=== PATIENT | male | born 1975 | race Caucasian/White ===

== ENCOUNTER 2021-11-09 00:04 | Inpatient (IN) | payer OTHER ==
[~2021-11-09] VITALS: Ht 165.1 cm; Wt 83.0 kg
[2021-11-09] MEDS ORDERED: IV NS 0.9% 1,000 ML BAG IV ONE ×3 (00:30→05:00)
[2021-11-09] MEDS ORDERED: ACETAMINOPHEN ES 500 MG TABLET PO ONE ×2 (00:30→11:30)
[2021-11-09] MEDS ORDERED: ACETAMINOPHEN ES 500 MG TABLET ONE ×2 (00:34→11:30)
--- NOTE | 2021-11-09 00:45 | NUR ---
IV LINE ESTABLSHED, RAC 18G. BLOOD COLLECTED AND SENT TO LAB
--- NOTE | 2021-11-09 00:52 | NUR ---
XRAY AT BEDSIDE
[2021-11-09] MEDS ORDERED: CEFTRIAXONE 1GM BAG (ER ONLY) 50 ML IV ONE ×2 (00:53→01:00)
[2021-11-09 00:54] LABS: BASOPHILS # (AUTO) 0.1 K/uL (0.0-0.2); BASOPHILS % (AUTO) 0.4 % (0.0-2.0); HEMATOCRIT 39 % (39-51); HEMOGLOBIN 13.4 g/dL (13.5-17.5); LYMPHOCYTES # (AUTO) 0.8 K/uL (0.8-4.8); LYMPHOCYTES % (AUTO) 5.2 % (20.0-44.0); MEAN CORPUSCULAR HGB CONC 34 g/dl (31.0-36.0); MEAN CORPUSCULAR VOLUME 87 fL (80-96); MONOCYTES # (AUTO) 0.7 K/uL (0.1-1.30); NEUTROPHILS % (AUTO) 89.4 % (43.0-81.0); PLATELET COUNT (AUTO) 177 K/uL (150-450); RED BLOOD CELL COUNT(AUTO) 4.55 MIL/uL (4.5-6.0); WHITE BLOOD COUNT (AUTO) 14.5 K/uL (4.3-11.0)
[2021-11-09] MEDS ORDERED: IOHEXOL-300 100 ML VIAL IV ONE (01:00)
[2021-11-09] MEDS ORDERED: CT SWABBABLE VALVE TRANS SET 1 EA INFUS.SET MC ONE (01:00)
[2021-11-09] MEDS ORDERED: METRONIDAZOLE 500MG/ NS 100ML 100 ML IV ONE ×2 (01:00→01:47)
[2021-11-09] MEDS ORDERED: IV NS 0.9% 250 ML IV ONE (01:01)
[2021-11-09 01:20] LABS: ALANINE AMINOTRANSFERASE 87 U/L (12-78); ALBUMIN 2.5 g/dL (3.4-5.0); ALKALINE PHOSPHATASE 93 U/L (46-116); ASPARTATE AMINOTRANSFERASE 53 U/L (15-37); BILIRUBIN,DIRECT 0.2 mg/dL (0.0-0.2); BILIRUBIN,TOTAL 0.6 mg/dL (0.2-1.0); CALCIUM, SERUM 7.8 mg/dL (8.5-10.1); CARBON DIOXIDE 28 mmol/L (21-32); CHLORIDE 90 mmol/L (98-107); CREATININE 1.2 mg/dL (0.6-1.3); GLUCOSE 146 mg/dL (74-106); SODIUM SERUM 126 mmol/L (136-145); TOTAL PROTEIN, SERUM 6.5 g/dL (6.4-8.2); UREA NITROGEN, BLOOD 13 mg/dL (7-18)
--- NOTE | 2021-11-09 01:21 | NUR ---
POTASSIUM 2.8, MADE MD AWARE
[2021-11-09 01:22] LABS: POTASSIUM 2.8 mmol/L (3.5-5.1)
--- NOTE | 2021-11-09 02:32 | NUR ---
Driss hooker in [facility] - 11/09/21 at 0304 by GEOVANNY ROOM [id number] GPS
[2021-11-09] MEDS ORDERED: Magnesium 1GM/D5W 100ML PREMIX 100 ML IV ONE ×2 (02:45→08:12)
[2021-11-09] MEDS ORDERED: POTASSIUM CL. PREMIX PERIPHER. 50 ML ONE ×2 (02:45→08:12)
[2021-11-09] MEDS: POTASSIUM CL. PREMIX PERIPHER. 50 ML IV SCH ×2 (02:53→08:35)
[2021-11-09 03:00] LABS: BILIRUBIN,URINE NEGATIVE (NEGATIVE); COLOR,URINE YELLOW (YELLOW); LEUKOCYTE ESTERASE ,URINE NEGATIVE (NEGATIVE); NITRITE, URINE NEGATIVE (NEGATIVE); PH,URINE 7.5 (5.0-8.0); PROTEIN,URINE TRACE mg/dl (NEGATIVE); UGLUCOSE NEGATIVE (NEGATIVE); UROBILINOGEN,URINE 0.2 EU/dL (0.2)
[2021-11-09] MEDS ORDERED: AZITHROMYCIN 500 MG in IV D5W 250 ML IV ONE (03:00)
[2021-11-09] MEDS: Magnesium 1GM/D5W 100ML PREMIX 100 ML IV SCH ×2 (04:00→08:35)
--- NOTE | 2021-11-09 04:37 | NUR ---
PT RESTING COMFORTABLY IN BED, WARM BLANKETS PROVIDED
--- NOTE | 2021-11-09 04:52 | NUR ---
PT STATES HE FEELS NAUSEA AND WARM, ELEVATED TEMP NOTED 102.6. MD MADE AWARE
[2021-11-09] MEDS ORDERED: ONDANSETRON HCL/PF 4 MG/2 ML VIAL IV ONE (05:00)
[2021-11-09] MEDS ORDERED: IBUPROFEN 400 MG TABLET PO ONE (05:00)
[2021-11-09] MEDS ORDERED: AZITHROMYCIN 500 MG VIAL ONE (05:40)
--- NOTE | 2021-11-09 06:30 | NUR ---
Driss hooker in [facility] - 11/09/21 at 0733 by GEOVANNY DANNY AGUILAR
[2021-11-09 06:40] LABS: BACTERIA,URINE Few /HPF (None Seen); RBC,URINE 21-50 /HPF (0-2); SQUAMOUS EPITHELIAL CELL,UR Few /HPF (None Seen)
--- NOTE | 2021-11-09 06:44 | NUR ---
ULTRASOUND AT BEDSIDE
--- NOTE | 2021-11-09 06:50 | NUR ---
PT WILL BE ADMITTED TO HOSPITAL. PREFFERED IPA HAS NOT CALLED BACK AND WILL BE ADMITTED D/T TIMEOUT.
--- NOTE | 2021-11-09 06:50 | NUR ---
EPIC PANEL PAGED
[2021-11-09 07:09] LABS: CALCIUM, SERUM 7.3 mg/dL (8.5-10.1); CREATININE 1.1 mg/dL (0.6-1.3)
--- NOTE | 2021-11-09 07:33 | NUR ---
ROOM 107
[2021-11-09] MEDS ORDERED: POTASSIUM CHLORIDE 20 MEQ TAB.PRT.SR PO ONE ×2 (08:25→08:30)
[2021-11-09 09:06] LABS: POTASSIUM 2.8 mmol/L (3.5-5.1)
--- NOTE | 2021-11-09 11:10 | NUR ---
ASSUMED THIS 46YO MALE PATIENT, IN BED. WITH CC OF FEVER AND VOMITING. PATIENT APPEARS TO BE WEAK AND FLUSHED. VITALS CHECKED. WILL CARRY OUT MD'S ORDER.
[2021-11-09] MEDS: LEVOFLOXACIN 750 MG /D5W 150ML 150 ML IV SCH (11:20)
--- NOTE | 2021-11-09 11:20 | NUR ---
IV MEDICATIONS STARTED
--- NOTE | 2021-11-09 11:24 | NUR ---
TEMP 102.5, TYLENOL 1 GM GIVEN PO PER ORDER BY DR OCHOA.
[2021-11-09] MEDS: Potassium Chloride 40 MEQ in IV D5/ 0.9% NACL 1,000 ML IV SCH ×2 (12:15→19:10)
--- NOTE | 2021-11-09 13:57 | NUR ---
LATEST TEMP 100.8.
--- NOTE | 2021-11-09 18:24 | NUR ---
CALLED AND SPOKE WITH DR. SALES REGARDING PT'S ADMITTING ORDERS. CLARIFIED AND READ BACK. ORDERS PLACED IN [facility]
[2021-11-09] MEDS ORDERED: IV NS 0.9% 1,000 ML IV SCH (18:30)
[2021-11-09] MEDS ORDERED: MORPHINE SULFATE INJ 2 MG/ML DISP.SYRIN IV PRN (18:30)
[2021-11-09] MEDS ORDERED: ONDANSETRON HCL/PF 4 MG/2 ML VIAL IV PRN (18:30)
--- NOTE | 2021-11-09 18:50 | NUR ---
GOT BED 101 > CHANGE OF SHIFT.
[2021-11-09] MEDS ORDERED: MAGNESIUM HYDROXIDE 30 ML UDC PO PRN (19:30)
[2021-11-09] MEDS ORDERED: Z GUARD REMEDY 4 OZ OINT TP PRN (19:30)
[2021-11-09] MEDS ORDERED: MAG HYDROX/AL HYDROX/SIMETH 30 ML UDC PO PRN (19:30)
[2021-11-09] MEDS ORDERED: CEFTRIAXONE 1 G in IV D5W 50 ML IV SCH (20:00)
--- NOTE | 2021-11-09 20:20 | NUR ---
REPORT GIVEN TO KATELYN CAMPOS
[2021-11-09] MEDS ORDERED: ACETAMINOPHEN 325 MG TABLET ONE ×2 (20:31→20:34)
[2021-11-09] MEDS: ACETAMINOPHEN 325 MG TABLET PO PRN (20:36)
--- NOTE | 2021-11-09 20:36 | NUR ---
PATIENT TEMP 103.2. TYLENOL 650 PO GIVEN
--- NOTE | 2021-11-09 20:52 | NUR ---
TRANSFERRED PATIENT TO ROOM 107 VIA STRETCHER
[2021-11-09 20:55] VITALS: BP 121/67
--- NOTE | 2021-11-09 20:55 | NUR ---
HARNESS TIER NOTES: RECEIVED REPORT FROM KATELYN SANDOVAL. PATIENT TRANSFERRED FROM ER VIA STRETCHER, PLACE IN ROOM 107 BED 1. DIAGNOSIS OF GASTROENTERITIS. PT AWAKE, ALERTX4 AND VERBALLY RESPONSIVE, [place] SPEAKING. ON O2 AT 2L/MIN VIA N/C, O2 SAT 96%. BREATHING EVEN AND UNLABORED. IV ACCESS ON LAC#18G INTACT AND PATENT NO S/S OF INFILTRATIONS. RUNNING POTASSIUM CHL 40 MEQ WITH IV D5NS AT 125CC/HR. STILL PT HAS FEVER 103.1. TYLENOL GIVEN AT ER. NO C/O PAIN OR DISCOMFORT. NO ACUTE DISTRESS. ASSISTED HIM TO THE RESTROOM. ALL SAFETY MEASURES IN PLACE. BED IN LOWEST POSITION AND LOCKED. SIDE RAILS UP X2, PLACE CALL LIGHT WITH IN REACH. WILL CONTINUE TO MONITOR
--- NOTE | 2021-11-09 21:20 | NUR ---
0385 PAGED [facility] TO VERIFY ORDERS. AWAITING CALL BACK.
--- NOTE | 2021-11-09 22:13 | NUR ---
RN NOTES: POTASSIUM CHL 40 MEQ IN D5 GIVEN AT ER.
--- NOTE | 2021-11-09 22:25 | NUR ---
1131 CALL EXCHANGED CALLED TO FOLLOW UP IF CALLED AND MADE AWARE THAT NO CALL BACK YET FROM JARROD MALIN. SHE SAID SHE WILL KEEP TRYING TO REACH HIM.
[2021-11-09] MEDS ORDERED: CEFTRIAXONE 1 G VIAL ONE (23:20)
--- NOTE | 2021-11-09 23:25 | NUR ---
0805 CALL EXCHANGE WAS NOTIFIED THAT NO CALL BACK FROM JARROD MALIN YET. SHE SAID SHE WILL KEEP TRYING TO REACH HIM.
--- NOTE | 2021-11-09 23:52 | NUR ---
2165 DR. SHERIN GIBBS CALLED AND VERIFIED IV ORDER OF PATIENT WITH ORDER TO DC NS AT 100ML/HR AND TO CONTINUE WITH IV D5NS WITH 40 MEQ POTASSIUM AT 100ML/HR. ORDER NOTED. KATELYN CAMPOS MADE AWARE OF NEW ORDER.
--- NOTE | 2021-11-10 00:10 | NUR ---
0010 DR GIBBS MADE AWARE THAT D5NS WITH 40 MEQ KCL NOT AVAILABLE AND HE ORDERED TO CONT. WITH NS AT 100ML/HR. ORDER NOTED AND CARRIED OUT.
[2021-11-10] MEDS: CEFTRIAXONE 2 G in IV D5W 100 ML IV SCH ×2 (00:29→22:58)
[2021-11-10] MEDS ORDERED: IV NS 0.9% 1,000 ML IV ONE (00:30)
[2021-11-10] MEDS ORDERED: CEFTRIAXONE 1 G VIAL ONE (00:42)
--- NOTE | 2021-11-10 01:31 | NUR ---
RN NOTES: NS 1000CC AT 100CC/HR STARTED ON 2258. WILL CONTINUE TO MONITOR
[2021-11-10] MEDS: ONDANSETRON HCL/PF 4 MG/2 ML VIAL IVP PRN ×2 (02:40→23:16)
--- NOTE | 2021-11-10 02:42 | NUR ---
RN NOTES: PT NOTED WITH 1 EPISODE OF VOMITING. ZOFRAN 2 ML IV PUSH GIVEN. PT TOLERATED WELL. WILL CONTINUE TO MONITOR
[2021-11-10 04:00] VITALS: BP 117/70
[2021-11-10] MEDS: ACETAMINOPHEN 325 MG TABLET PO PRN ×2 (04:17→16:27)
--- NOTE | 2021-11-10 04:25 | NUR ---
RN NOTES: PT C/O HEADACHE, 3/10 PAIN SCALE AND HAD INCREASED TEMP 100.1. TYLENOL 650 2 TABS GIVEN PER PRN ORDERED. PT TOLERATED WELL. WILL CONTINUE TO MONITOR
--- NOTE | 2021-11-10 06:46 | NUR ---
RN CLOSING NOTES: PT AWAKE, ALERTX4 AND VERBALLY RESPONSIVE, COMORAN SPEAKING. ON O2 AT 2L/MIN VIA N/C, O2 SAT 94%. BREATHING EVEN AND UNLABORED. NO SOB NOTED. IV ACCESS ON LAC#18G INTACT AND PATENT NO S/S OF INFILTRATIONS. RUNNING NS 100CC/HR/. NO C/O PAIN OR DISCOMFORT. NO ACUTE DISTRESS. ALL DUE MEDS GIVEN ORDERED. SKIN CLEAN AND DRY TO TOUCH. ASSISTED HIM TO THE RESTROOM. ALL SAFETY MEASURES IN PLACE. BED IN LOWEST POSITION AND LOCKED. SIDE RAILS UP X2, PLACE CALL LIGHT WITH IN REACH. WILL ENDORSE TO MORNING SHIFT NURSE.
[2021-11-10 07:10] LABS: BASOPHILS % (AUTO) 0.1 % (0.0-2.0); HEMATOCRIT 37 % (39-51); HEMOGLOBIN 12.6 g/dL (13.5-17.5); LYMPHOCYTES # (AUTO) 0.7 K/uL (0.8-4.8); LYMPHOCYTES % (AUTO) 6.3 % (20.0-44.0); MEAN CORPUSCULAR HGB CONC 34 g/dl (31.0-36.0); MEAN CORPUSCULAR VOLUME 87 fL (80-96); MONOCYTES # (AUTO) 0.4 K/uL (0.1-1.30); MONOCYTES % (AUTO) 3.7 % (2.0-12.0); NEUTROPHILS # (AUTO) 9.4 K/uL (1.8-8.9); NEUTROPHILS % (AUTO) 89.9 % (43.0-81.0); PLATELET COUNT (AUTO) 196 K/uL (150-450); RED BLOOD CELL COUNT(AUTO) 4.24 MIL/uL (4.5-6.0); WHITE BLOOD COUNT (AUTO) 10.5 K/uL (4.3-11.0)
--- NOTE | 2021-11-10 07:30 | NUR ---
TRADE SPECIALIST OPENING NOTES: RECEIVED PATIENT IN BED AWAKE ALERT AND ORIENTED X 4,RESPIRATION IS EVEN AND UNLABORED,O2 SAT 96% ON 2 LITER OXYGEN VIA NASAL CANNULA,DENIED ANY PAIN OR DISCOMFORT, PER NIGHT RN REPORT PATIENT WALK TO THE BATHROOM AND HIS IV DISLODGED.NO BLEEDING NOTED, CONTINENT OF BOWEL AND BLADDER, BED REMAINED IN LOW AND LOCKED POSTION, CALL LIGHT WITHIN REACH ALL NEEDS ANTICIPATED
[2021-11-10 07:41] LABS: CALCIUM, SERUM 7.8 mg/dL (8.5-10.1); CREATININE 1.1 mg/dL (0.6-1.3); MAGNESIUM 2.1 mg/dL (1.8-2.4); POTASSIUM 3.6 mmol/L (3.5-5.1)
[2021-11-10] MEDS ORDERED: POTASSIUM PHOSPHATE MM 15 MMOL in IV NS 0.9% 250 ML IV SCH (09:30)
--- NOTE | 2021-11-10 11:30 | NUR ---
SAP ENTERPRISE PORTAL CONSULTANT NOTES: MIDLINE INSERTED TO RIGHT UPPER ARM, WELL TOLERATED
[2021-11-10] MEDS: POTASSIUM PHOSPHATE MM 7.5 MMOL in IV NS 0.9% 100 ML IV SCH ×2 (11:43→12:51)
[2021-11-10] MEDS: LEVOFLOXACIN 750 MG /D5W 150ML 150 ML IV SCH (11:46)
[2021-11-10 16:00] VITALS: BP 119/76
[2021-11-10] MEDS ORDERED: NEUTRA PHOS 1 POWD.PACKET PO ONE (17:00)
--- NOTE | 2021-11-10 19:30 | NUR ---
TEL RN CLOSING NOTES: PT AWAKE, ALERTX4 AND VERBALLY RESPONSIVE, DANISH/CITIZEN OF [place] SPEAKING. ON O2 AT 2L/MIN VIA N/C, O2 SAT 95%. BREATHING EVEN AND UNLABORED. NO SOB NOTED. IV MISA MIDLINE#20 G INTACT AND PATENT NO S/S OF INFILTRATIONS. RUNNING NS 100CC/HR/. NO C/O PAIN OR DISCOMFORT. NO ACUTE DISTRESS. ALL DUE MEDS GIVEN ORDERED. SKIN CLEAN AND DRY TO TOUCH. ASSISTED HIM TO THE RESTROOM. ALL SAFETY MEASURES IN PLACE. BED IN LOWEST POSITION AND LOCKED. SIDE RAILS UP X2, PLACE CALL LIGHT WITH IN REACH. WILL ENDORSE TO EXPLOSIVE OPERATOR BOMB NURSE.
--- NOTE | 2021-11-10 19:35 | NUR ---
RN OPENING NOTES: RECEIVED PT IN BED, AWAKE, ALERTX4 AND VERBALLY RESPONSIVE, [place] SPEAKING. FAMILY AT BEDSIDE. ON O2 AT 2L/MIN VIA N/C AND PT TOLERATED WELL. BREATHING EVEN AND UNLABORED. IV ACCESS ON MISA MIDLINE INTACT AND PATENT NO S/S OF INFILTRATIONS. NO C/O PAIN OR DISCOMFORT. NO ACUTE DISTRESS. ABLE TO USE RESTROOM BY HIMSELF. ALL SAFETY MEASURES IN PLACE. BED IN LOWEST POSITION AND LOCKED. SIDE RAILS UP X2, PLACE CALL LIGHT WITH IN REACH. WILL CONTINUE TO MONITOR
[2021-11-10 20:00] VITALS: BP 113/72
--- NOTE | 2021-11-10 23:23 | NUR ---
RN NOTES: PT C/O NAUSEA BUT NO EPISODE OF VOMITING. ZOFRAN 2 ML IV PUSH GIVEN. PT TOLERATED WELL. WILL CONTINUE TO MONITOR
--- NOTE | 2021-11-11 00:05 | NUR ---
RN NOTES: PT C/O GENERALIZED BODY ACHE, 3/10 PAIN SCALE. TYLENOL 650MG 2 TABS GIVEN AND PT TOLERATED WELL. WILL CONTINUE TO MONITOR
[2021-11-11 04:00] VITALS: BP 128/65
--- NOTE | 2021-11-11 06:35 | NUR ---
RN CLOSING NOTES: PT IN BED, SLEEPING IN BED BUT EASILY AROUSABLE, ALERTX4 AND VERBALLY RESPONSIVE, MONGOL[place] SPEAKING. ON O2 AT 2L/MIN VIA N/C, O2 SAT 95% AND PT TOLERATED WELL. BREATHING EVEN AND UNLABORED. IV ACCESS ON MISA MIDLINE INTACT AND PATENT NO S/S OF INFILTRATIONS. NO C/O PAIN OR DISCOMFORT. NO ACUTE DISTRESS. ABLE TO USE RESTROOM BY HIMSELF. ALL DUE MEDS GIVEN TOLERATED WELL. ALL SAFETY MEASURES IN PLACE. BED IN LOWEST POSITION AND LOCKED. SIDE RAILS UP X2, PLACE CALL LIGHT WITH IN REACH. WILL ENDORSE TO MORNING SHIFT NURSE.
[2021-11-11 06:58] LABS: BASOPHILS % (AUTO) 0.4 % (0.0-2.0); EOSINOPHILS % (AUTO) 0.5 % (0.0-6.0); HEMATOCRIT 31 % (39-51); HEMOGLOBIN 10.7 g/dL (13.5-17.5); LYMPHOCYTES # (AUTO) 0.7 K/uL (0.8-4.8); LYMPHOCYTES % (AUTO) 9.1 % (20.0-44.0); MEAN CORPUSCULAR HGB CONC 35 g/dl (31.0-36.0); MEAN CORPUSCULAR VOLUME 86 fL (80-96); MONOCYTES # (AUTO) 0.6 K/uL (0.1-1.30); MONOCYTES % (AUTO) 7.2 % (2.0-12.0); NEUTROPHILS # (AUTO) 6.6 K/uL (1.8-8.9); NEUTROPHILS % (AUTO) 82.8 % (43.0-81.0); PLATELET COUNT (AUTO) 211 K/uL (150-450); RED BLOOD CELL COUNT(AUTO) 3.56 MIL/uL (4.5-6.0); WHITE BLOOD COUNT (AUTO) 7.9 K/uL (4.3-11.0)
[2021-11-11 07:26] LABS: CALCIUM, SERUM 7.5 mg/dL (8.5-10.1); MAGNESIUM 1.7 mg/dL (1.8-2.4); PHOSPHORUS 1.9 mg/dL (2.5-4.9); POTASSIUM 3.2 mmol/L (3.5-5.1)
--- NOTE | 2021-11-11 07:30 | NUR ---
RN OPENING NOTE PT IN BED, SLEEPING IN BED BUT EASILY AROUSABLE, ALERTX4 AND VERBALLY RESPONSIVE, INDONESIAN SPEAKING. ON O2 AT 2L/MIN VIA N/C, O2 SAT 97% AND PT TOLERATING WELL. BREATHING EVEN AND UNLABORED. IV ACCESS ON MISA MIDLINE INTACT AND PATENT NO S/S OF INFILTRATIONS. NO C/O PAIN OR DISCOMFORT. NO ACUTE DISTRESS. ABLE TO USE RESTROOM BY HIMSELF. ALL SAFETY MEASURES IN PLACE. BED IN LOWEST POSITION AND LOCKED. SIDE RAILS UP X2, PLACE CALL LIGHT WITH IN REACH. WILL CONTINUE TO MONITOR.
[2021-11-11 08:00] VITALS: BP 117/75
[2021-11-11] MEDS: Magnesium 1GM/D5W 100ML PREMIX 100 ML IV SCH ×2 (09:00→10:42)
[2021-11-11] MEDS: ACETAMINOPHEN 325 MG TABLET PO PRN ×3 (10:42→22:02)
[2021-11-11] MEDS ORDERED: NEUTRA PHOS 1 POWD.PACKET PO ONE (11:00)
[2021-11-11] MEDS ORDERED: POTASSIUM CHLORIDE 20 MEQ POWDER PACKET NG SCH (11:00)
[2021-11-11] MEDS: LEVOFLOXACIN 750 MG /D5W 150ML 150 ML IV SCH (11:29)
[2021-11-11 12:00] VITALS: BP 117/75
[2021-11-11] MEDS ORDERED: POTASSIUM CHLORIDE 10 MEQ TABLET.SA PO ONE (14:00)
[2021-11-11 16:00] VITALS: BP 110/74
--- NOTE | 2021-11-11 18:51 | NUR ---
RN CLOSING NOTE PT REMAINED STABLE THROUGHOUT SHIFT. PT IN BED, SLEEPING IN BED BUT EASILY AROUSABLE, ALERTX4 AND VERBALLY RESPONSIVE, SYRIAN SPEAKING. BREATHING EVEN AND UNLABORED ON RA 02SAT >95% TOLERATING WELL. IV ACCESS ON MISA MIDLINE INTACT AND PATENT NO S/S OF INFILTRATIONS. NO C/O PAIN OR DISCOMFORT. NO ACUTE DISTRESS. ABLE TO USE RESTROOM BY HIMSELF. ALL MEDS ADM PER MD ORDER. ALL NEEDS MET. ALL SAFETY MEASURES IN PLACE. BED IN LOWEST POSITION AND LOCKED. SIDE RAILS UP X2, PLACE CALL LIGHT WITH IN REACH. WILL ENDORSE TO DIAMOND GRINDER RN.
--- NOTE | 2021-11-11 19:36 | NUR ---
RN OPENING NOTES: RECEIVED PT IN BED, AWAKE, ALERTX4 AND VERBALLY RESPONSIVE, BULGARIAN SPEAKING. ON O2 AT 2L/MIN VIA N/C AND PT TOLERATED WELL. BREATHING EVEN AND UNLABORED. IV ACCESS ON MISA MIDLINE INTACT AND PATENT NO S/S OF INFILTRATIONS. NO C/O PAIN OR DISCOMFORT. NO ACUTE DISTRESS. CONTINENT ON BOWEL AND BLADDER. ABLE TO USE RESTROOM BY HIMSELF. ALL SAFETY MEASURES IN PLACE. BED IN LOWEST POSITION AND LOCKED. SIDE RAILS UP X2, PLACE CALL LIGHT WITH IN REACH. WILL CONTINUE TO MONITOR
[2021-11-11 20:00] VITALS: BP 113/71
--- NOTE | 2021-11-11 21:40 | NUR ---
KATELYN NOTES: GAVE REPORT TO KATELYN BENNETT
[2021-11-11] MEDS: CEFTRIAXONE 2 G in IV D5W 100 ML IV SCH (22:01)
--- NOTE | 2021-11-11 22:02 | NUR ---
RN NOTE COMPLAINED OF MILD PAIN, REQUESTED FOR TYLENOL. ADMINISTERED TYLENOL PRN ORDERED.
[2021-11-12 04:00] VITALS: BP 121/72
--- NOTE | 2021-11-12 06:40 | NUR ---
RN NOTE PATIENT RESTING IN BED. NO SIGNIFICANT CHANGES DURING THIS SHIFT. ALL NEEDS ATTENDED PROMPTLY. WILL ENDORSE TO AM SHIFT.
--- NOTE | 2021-11-12 09:00 | NUR ---
RN NOTES PATIENT SEEN BY DR. JENSEN TODAY AT BEDSIDE; MADE AWARE OF PLAN OF CARE.
[2021-11-12] MEDS ORDERED: PANT40TA2 PO (09:11)
[2021-11-12] MEDS ORDERED: LEVO750T46 PO (09:11)
--- NOTE | 2021-11-12 11:31 | NUR ---
RN NOTES DR. JENSEN SEEN PATIENT TODAY W/ ORDER FOR DISCHARGE TO HOME W/ OUTPATIENT GI FOLLOW-UP. DISCHARGE INSTRUCTION AND EDUCATION PROVIDED TO PATIENT VIA INDIAN-SPEAKING FAMILYQUINTIN (DTR), AT BEDSIDE; VERBALIZED UNDERSTANDING W/ D/C MEDICATIONS AND FOLLOW-UP APPTS. DISCHARGE FORM AND BELONGINGS LIST FORM SIGNED BY PATIENT AND ALL BELONGINGS ACCOUNTED FOR. NAME ARMBAND AND MIDLINE REMOVED. NO SKIN ISSUE NOTED. PATIENT IS AMBULATORY W/ STEADY GAIT AND ABLE TO AMBULATE TO THE LOBBY ACCOMPANIED BY SON AND DTR. PICKED UP BY FAMILY VIA PRIVATE CAR. CHARGE NURSE AND MD AWARE OF DISCHARGE.
[2021-11-13] MEDS ORDERED: LEVOFLOXACIN (250MG) 250 MG TABLET PO SCH (09:00)
== END 2021-11-12 11:00 | disposition home or self-care (01) | DRG 720 ==
LOC: ER 00:20 → TRANSITION 08:06 → TELE-TD 19:23 → MEDSG1 20:14
PROVIDERS: ADMIT Internal Medicine; ATTEND Internal Medicine
PROC: 05HB33Z Insertion of Infusion Device into Right Basilic Vein, Percutaneous Approach (ICD-10-PCS; principal; 2021-11-10)
DX: A41.9 Sepsis, unspecified organism (principal); J96.01 Acute respiratory failure with hypoxia; E43 Unspecified severe protein-calorie malnutrition; J15.9 Unspecified bacterial pneumonia; E87.1 Hypo-osmolality and hyponatremia; E88.09 Other disorders of plasma-protein metabolism, not elsewhere classified; E86.1 Hypovolemia; K52.9 Noninfective gastroenteritis and colitis, unspecified; Z20.822 Contact with and (suspected) exposure to COVID-19; E83.42 Hypomagnesemia; J98.11 Atelectasis; N30.90 Cystitis, unspecified without hematuria; E87.6 Hypokalemia; F17.200 Nicotine dependence, unspecified, uncomplicated; E66.9 Obesity, unspecified; Z68.30 Body mass index [BMI] 30.0-30.9, adult
CPT/HCPCS: 36410; 36415; 71045-TC; 76705-TC; 80048-TC; 80076-TC; 81001; 83605-TC; 83690-TC; 83735-TC; 84100-TC; 84484-TC; 85025-TC; 85730-TC; 87040-TC; 87081-TC; 87086-TC; C9803; G0378; J0456; J0696; J1956; J2405; J3475; J3480; J3490; J7030; J7040; J7042; J7050; J7060; Q9967